=== PATIENT | male | born 1980 | race African-American/Black ===

== ENCOUNTER 2019-03-31 17:54 | Emergency (ER) | payer SELFPAY ==
[~2019-03-31] VITALS: Ht 180.3 cm; Wt 61.2 kg
[2019-03-31] MEDS ORDERED: KETOROLAC TROMETH 60MG/2ML VIAL IM ONE (19:15)
[2019-03-31] MEDS ORDERED: cefTRIAXone SOD 1,000 MG VL IM ONE (19:15)
[2019-03-31 19:32] VITALS: BP 104/67
== END 2019-03-31 20:10 | disposition home or self-care (01) ==
LOC: ER 17:57
DX: K04.7 Periapical abscess without sinus (principal)
CPT/HCPCS: 96372; 99283; J0696; J1885